=== PATIENT | female | born 1990 | race Caucasian/White ===

== ENCOUNTER 2016-10-31 00:51 | Emergency (ER) | payer MEDICAID, OTHER ==
[~2016-10-31] VITALS: Ht 157.5 cm; Wt 73.0 kg
[~2016-10-31 00:51] MED LIST: AZIT250T6; BACITRACIN; CLOTRIMAZOLE; NYSTATIN
[2016-10-31 01:19] VITALS: BP 129/83
== END 2016-10-31 03:58 | disposition left against medical advice (07) ==
LOC: ER 00:52
DX: R21 Rash and other nonspecific skin eruption (principal); Z53.21 Procedure and treatment not carried out due to patient leaving prior to being seen by health care provider

== ENCOUNTER 2017-04-24 00:44 | Emergency (ER) | payer OTHER ==
[~2017-04-24] VITALS: Ht 160 cm; Wt 69.0 kg
[2017-04-24 01:46] LABS: CLARITY URINE CLEAR (CLEAR); COLOR URINE YELLOW (YELLOW); GLUCOSE URINE NEGATIVE (NEGATIVE); KETONES URINE TRACE (NEGATIVE); LEUKOCYTE ESTERASE URINE NEGATIVE (NEGATIVE); NITRITE URINE NEGATIVE (NEGATIVE); OCCULT BLOOD URINE NEGATIVE (NEGATIVE); PH URINE 5.5 (4.5-8.0); PROTEIN URINE NEGATIVE (NEGATIVE); SPECIFIC GRAVITY URINE 1.025 (1.005-1.030); UROBILINOGEN URINE 0.2 E.U./dL (0.2-1.0)
[2017-04-24] MEDS ORDERED: KETOROLAC 30MG/ML VIAL IV STA (06:29)
[2017-04-24] MEDS ORDERED: ONDANSETRON HCL 4MG/2ML VIAL IV STA (06:29)
[2017-04-24] MEDS ORDERED: SODIUM CHLORIDE 0.9% 500 ML IV ONE (06:33)
[2017-04-24 06:56] LABS: CHLORIDE 110 mEq/L (98-107)
[2017-04-24 06:59] LABS: CARBON DIOXIDE 24 mEq/L (21-32)
[2017-04-24 07:06] LABS: BASOPHILS % 0.5 % (0.0-2.0); EOSINOPHILS % 2.8 % (0.0-5.0); HEMATOCRIT. 40.4 % (36.0-48.0); HEMOGLOBIN. 14.1 g/dL (12.0-16.0); LYMPHOCYTES % 30.7 % (20.0-50.0); MEAN CORPUSCULAR HEMOGLOBIN 31.6 pg (28.0-32.0); MEAN CORPUSCULAR VOLUME 90.3 fL (81.0-99.0); MEAN PLATELET VOLUME 9.4 fl (7.4-10.4); MONOCYTES % 6.7 % (2.0-8.0); NEUTROPHILS % 59.3 % (40.0-76.0); PLATELET 211 x1000/uL (130-400); RED BLOOD CELL COUNT 4.47 mill/uL (4.2-5.4); RED CELL DISTRIBUTION WIDTH 12.8 % (11.6-14.6)
[2017-04-24] MEDS ORDERED: ONDANSETRON 4MG ODT PO ONE (09:30)
[2017-04-24 10:01] VITALS: BP 112/82
== END 2017-04-24 10:01 | disposition home or self-care (01) ==
LOC: ER 00:44
DX: R10.30 Lower abdominal pain, unspecified (principal); R42 Dizziness and giddiness; R51 Headache; R11.0 Nausea
CPT/HCPCS: 36415; 76830; 76856; 80053; 81003; 81025; 83690; 85025; 93005; 96361; 96374; 96375; 99285; J1885; J2405; J7040; Q0162; Z7610